=== PATIENT | female | born 1980 | race African-American/Black ===

== ENCOUNTER → 2017-01-29 | Outpatient (CLI) | payer OTHER ==
[2017-01-29 10:30] LABS: BLOOD UREA NITROGEN 6 mg/dL (7-18); CALCIUM 9.3 mg/dL (8.5-10.1); CARBON DIOXIDE 29.3 mmol/L (21-32); CHLORIDE 106 mmol/L (98-107); CREATININE 0.76 mg/dL (0.55-1.02); GLUCOSE 99 mg/dL (65-99); SODIUM 142 mmol/L (136-145); eGFR BLACK RACES > 60 (>60); eGFR NON BLACK RACES > 60 (>60)
[2017-01-29 10:33] LABS: BASOPHILS # (AUTO) 0.1 X10^3/uL (0.0-0.1); BASOPHILS % (AUTO) 1.1 % (0.2-1.0); EOSINOPHILS # (AUTO) 0.1 x10^3/uL (0.0-0.2); EOSINOPHILS % (AUTO) 1.7 % (0.9-2.9); HEMATOCRIT 37.6 % (36.0-47.0); HEMOGLOBIN 12.1 g/dL (12.0-16.0); LYMPHOCYTES # (AUTO) 2.3 X10^3/uL (1.3-2.9); LYMPHOCYTES % (AUTO) 40.7 % (21.0-51.0); MEAN CORPUSCULAR HEMOGLOBIN 25.7 pg (27.0-34.0); MEAN CORPUSCULAR HGB CONC 32.1 g/dL (33.0-35.0); MONOCYTES # (AUTO) 0.3 x10^3/uL (0.3-0.8); MONOCYTES % (AUTO) 5.5 % (0.0-13.0); NEUTROPHILS # (AUTO) 2.8 x10^3/uL (2.2-4.8); PLATELET COUNT 301 X10^3/uL (150.0-450.0); WHITE BLOOD COUNT 5.6 X10^3/uL (3.6-10.0)
[2017-01-29 10:33] LABS: BILIRUBIN,URINE NEGATIVE (NEGATIVE); BLOOD/HEMOGLOBIN,URINE 2+ (NEGATIVE); GLUCOSE, URINE NEGATIVE (NEGATIVE); KETONES,URINE NEGATIVE (NEGATIVE); LEUKOCYTE ESTERASE ,URINE 2+ (NEGATIVE); NITRITES,URINE NEGATIVE (NEGATIVE); PROTEIN,URINE 1+ (NEGATIVE); UROBILINOGEN,URINE 1+ (NORMAL)
[2017-01-29 10:53] LABS: AMORPHOUS SEDIMENT,UR TRACE /HPF (NEGATIVE); APPEARANCE,URINE CLEAR (CLEAR); BACTERIA,URINE TRACE /HPF (NEGATIVE); COLOR,URINE YELLOW (YELLOW); SQUAMOUS EPITHELIAL CELL,UR MODERATE /HPF (NEGATIVE)
[2017-01-29 10:59] LABS: SERUM PREGNANCY TEST, QUAL NEGATIVE <10 mIU/mL
[2017-01-29 11:25] LABS: HYPOCHROMASIA SLIGHT; PLATELET MORPHOLOGY COMMENT NORMAL (NORMAL)
== END ==
LOC: LAB 09:34
PROVIDERS: ATTEND Specialist
DX: Z01.818 Encounter for other preprocedural examination (principal); N92.5 Other specified irregular menstruation; R10.2 Pelvic and perineal pain
CPT/HCPCS: 36415; 80048; 81001; 84703; 85025; 85610; 85730; 86850; 86900; 86901; 87086

== ENCOUNTER 2017-02-01 06:14 | Observation (INO) | payer OTHER ==
[~2017-02-01 06:14] MED LIST: ANCEF VIAL 1 GM ONE; D5 1/2 NS 1000 ML 1,000 ML IV ONE; NS 100 ML IV 100 ML IV ONE
[2017-02-01] MEDS ORDERED: D5 1/2 NS 1000 ML 1,000 ML IV SCH ×2 (06:40→14:40)
[2017-02-01] MEDS ORDERED: ANCEF VIAL 1 GM 1 GM in NS 50 ML IV + SPIKE MINIBAG* 50 ML IV PRN (06:40)
[2017-02-01] MEDS ORDERED: VASOSTRICT INJ 20 UNITS VIAL ONE (06:47)
[2017-02-01 06:55] VITALS: BMI 40.7
[2017-02-01] MEDS ORDERED: FENTANYL INJ 100 mcg ONE (07:11)
[2017-02-01] MEDS ORDERED: DURAMORPH ONE (07:12)
[2017-02-01] MEDS ORDERED: LR 1000 ML IV 1,000 ML IV ONE (07:43)
[2017-02-01] MEDS ORDERED: NS IRRIGATION 1000 ML 500 ML IR ONE (08:22)
[2017-02-01] MEDS ORDERED: BENADRYL INJ 50 MG VIAL IVP PRN ×3 (08:46→09:01)
[2017-02-01] MEDS ORDERED: PHENERGAN INJ 25 MG IVP PRN (08:46)
[2017-02-01] MEDS ORDERED: ZOFRAN INJ 4 MG VIAL IVP PRN ×3 (08:46→09:01)
[2017-02-01] MEDS ORDERED: REGLAN INJ 10 MG VIAL IVP PRN ×2 (08:46→09:01)
[2017-02-01] MEDS ORDERED: PROzac PO SCH (09:00)
[2017-02-01] MEDS ORDERED: PriLOSEC PO SCH (09:00)
[2017-02-01] MEDS ORDERED: PERCOCET TAB 5/325 MG PO PRN ×2 (09:01→15:13)
[2017-02-01] MEDS ORDERED: NARCAN INJ IVP PRN (09:01)
[2017-02-01] MEDS ORDERED: TORADOL 30 MG VIAL IVP PRN (09:01)
[2017-02-01] MEDS: D5 1/2 NS 1000 ML 1,000 ML IV SCH ×3 (09:51→21:18)
[2017-02-01] MEDS ORDERED: ZOFRAN INJ 4 MG VIAL ONE (10:22)
[2017-02-01] MEDS ORDERED: VERSED ONE (10:22)
[2017-02-01] MEDS ORDERED: SUPRANE IN ONE (10:22)
[2017-02-01] MEDS ORDERED: NORCURON INJ 10 MG VIAL ONE (10:22)
[2017-02-01] MEDS ORDERED: REGLAN INJ 10 MG VIAL ONE (10:22)
[2017-02-01] MEDS ORDERED: XYLOCAINE 1 % (PLAIN) ONE (10:22)
[2017-02-01] MEDS ORDERED: NEOSTIGMINE INJ ONE (10:22)
[2017-02-01] MEDS ORDERED: QUELICIN (OR ANECTINE) ONE (10:22)
[2017-02-01] MEDS ORDERED: ROBINUL ONE (10:22)
[2017-02-01] MEDS ORDERED: DIPRIVAN VIAL ONE (10:22)
[2017-02-01] MEDS: TORADOL 30 MG VIAL IVP PRN (18:22)
[2017-02-01] MEDS: PriLOSEC PO SCH (21:01)
[2017-02-02] MEDS: TORADOL 30 MG VIAL IVP PRN (04:25)
[2017-02-02 05:39] LABS: BLOOD UREA NITROGEN 3 mg/dL (7-18); CALCIUM 8.4 mg/dL (8.5-10.1); CARBON DIOXIDE 29.4 mmol/L (21-32); CHLORIDE 104 mmol/L (98-107); CREATININE 0.64 mg/dL (0.55-1.02); GLUCOSE 107 mg/dL (65-99); SODIUM 139 mmol/L (136-145); eGFR BLACK RACES > 60 (>60); eGFR NON BLACK RACES > 60 (>60)
[2017-02-02 05:40] LABS: EOSINOPHILS # (AUTO) 0.1 x10^3/uL (0.0-0.2); MEAN CORPUSCULAR HEMOGLOBIN 25.6 pg (27.0-34.0); MONOCYTES # (AUTO) 0.6 x10^3/uL (0.3-0.8); NEUTROPHILS % (AUTO) 76.8 % (42.0-75.0)
[2017-02-02] MEDS: D5 1/2 NS 1000 ML 1,000 ML IV SCH (05:48)
[2017-02-02 05:50] LABS: BASOPHILS # (AUTO) 0.1 X10^3/uL (0.0-0.1); BASOPHILS % (AUTO) 0.5 % (0.2-1.0); EOSINOPHILS % (AUTO) 0.5 % (0.9-2.9); HEMATOCRIT 31.7 % (36.0-47.0); HEMOGLOBIN 10.2 g/dL (12.0-16.0); LYMPHOCYTES % (AUTO) 17.1 % (21.0-51.0); MEAN CORPUSCULAR HGB CONC 32.1 g/dL (33.0-35.0); MEAN CORPUSCULAR VOLUME 79.6 fL (80.0-100.0); MEAN PLATELET VOLUME 8.1 fL (7.4-11.0); MONOCYTES % (AUTO) 5.1 % (0.0-13.0); NEUTROPHILS # (AUTO) 8.8 x10^3/uL (2.2-4.8); PLATELET COUNT 255 X10^3/uL (150.0-450.0); RED BLOOD COUNT 3.98 X10^6/uL (3.5-5.4); RED CELL DISTRIBUTION WIDTH 15.1 % (11.6-16.5); WHITE BLOOD COUNT 11.5 X10^3/uL (3.6-10.0)
[2017-02-02 05:59] LABS: PLATELET MORPHOLOGY COMMENT NORMAL (NORMAL)
[2017-02-02] MEDS: PriLOSEC PO SCH (08:58)
[2017-02-02] MEDS ORDERED: PROzac PO SCH (09:00)
[2017-02-02 10:03] VITALS: BP 115/58
== END 2017-02-02 09:45 | disposition home or self-care (01) ==
LOC: SURG1 06:14 → MED/SURG 09:01 → OBS 20:32 → SURG1 20:33
PROVIDERS: ADMIT Specialist; ATTEND Specialist
PROC: 0UTC7ZZ Resection of Cervix, Via Natural or Artificial Opening (ICD-10-PCS; 2017-02-01)
PROC: 0UT97ZZ Resection of Uterus, Via Natural or Artificial Opening (ICD-10-PCS; principal; 2017-02-01 07:30)
DX: N92.5 Other specified irregular menstruation (principal); D25.2 Subserosal leiomyoma of uterus; R10.2 Pelvic and perineal pain; K21.9 Gastro-esophageal reflux disease without esophagitis; F41.8 Other specified anxiety disorders
CPT/HCPCS: 36415; 80048; 85025; A4216; A4222; G0378; J0330; J0690; J1885; J2001; J2250; J2405; J2710; J2765; J3010; J3490; J7042; J7120